=== PATIENT | female | born 1940 | race Caucasian/White ===

== ENCOUNTER 2024-04-16 08:28 | Day surgery (SDC) | payer MEDICARE, OTHER ==
[~2024-04-16] VITALS: Ht 149.9 cm; Wt 72.7 kg
[~2024-04-16 08:28] MED LIST: ASPI-529; CHOL50002 PO; EZET10TA48 PO; IBUP-1985 PO; LOSA-418 PO; POTA8CAP20 PO; RANO500T6 PO; ROVASTATIN PO; VERA240C2 PO
[2024-04-16 09:03] VITALS: BP 188/78; PULSE 67; RESP 14
[2024-04-16] MEDS ORDERED: simethicone 40mg/0.6ml oral drops 30ml ONE (09:50)
[2024-04-16] MEDS ORDERED: fentaNYL/PF 50MCG/1 ML 2ML syringe ONE (09:57)
[2024-04-16] MEDS ORDERED: diphenhydrAMINE 50 mg/ml inj ONE (09:57)
[2024-04-16] MEDS ORDERED: MIDAZolam 1 MG/ML 5ML VIAL ONE (09:57)
[2024-04-16] MEDS ORDERED: LIDOcaine 2% Viscous 15ml cup ONE (09:58)
[2024-04-16 10:35] VITALS: BP 156/66; PULSE 59; RESP 14; O2SAT 97
[2024-04-16 10:40] VITALS: BP 156/66; PULSE 59; RESP 14; O2SAT 97
[2024-04-16 10:45] VITALS: BP 155/67; PULSE 62; RESP 16; O2SAT 96
[2024-04-16 10:55] VITALS: BP 150/49; PULSE 55; RESP 15; O2SAT 98
[2024-04-16 11:05] VITALS: BP 160/56; PULSE 53; RESP 18; O2SAT 99
== END 2024-04-16 11:30 | disposition home or self-care (01) ==
LOC: GI LAB 08:28
PROVIDERS: ATTEND Internal Medicine Gastroenterology
DX: K59.00 Constipation, unspecified (principal); K30 Functional dyspepsia; R13.10 Dysphagia, unspecified; K57.30 Diverticulosis of large intestine without perforation or abscess without bleeding; D12.5 Benign neoplasm of sigmoid colon; D12.3 Benign neoplasm of transverse colon; D12.8 Benign neoplasm of rectum; K44.9 Diaphragmatic hernia without obstruction or gangrene; K29.71 Gastritis, unspecified, with bleeding; K31.89 Other diseases of stomach and duodenum; Z86.0100 Personal history of colon polyps, unspecified
CPT/HCPCS: 43239; 45385; 99153; A4620; C1889; G0500; J2250; J3010; J7030; Z7512; 88305; 99152; J1200